=== PATIENT | male | born 1935 | race Caucasian/White ===

== ENCOUNTER → 2018-04-28 14:50 | Outpatient (CLI) | payer MEDICARE, OTHER, SELFPAY | PROVIDERS: Family Provider Internal Medicine; PCP Internal Medicine; Referring Provider Internal Medicine; Visit Provider Internal Medicine | DX: C61 Malignant neoplasm of prostate (principal) | CPT/HCPCS: 36415; 84153 ==

== ENCOUNTER → 2019-04-28 07:35 | Outpatient (CLI) | payer MEDICARE, OTHER, SELFPAY | LOC: LAB.FUTURE 07:39 → LAB 08:48 | PROVIDERS: Family Provider Internal Medicine; PCP Internal Medicine; Referring Provider Urology; Visit Provider Urology | DX: Z12.5 Encounter for screening for malignant neoplasm of prostate (principal) | CPT/HCPCS: 36415; 84153; G0103 ==

== ENCOUNTER 2019-12-09 07:04 | Emergency (ER) | payer MEDICARE, OTHER, SELFPAY ==
[2019-12-09 07:05] VITALS: BP 183/85; PULSE 74; RESP 18; TEMP 36.6; O2SAT 95; BMI 27.1
--- NOTE | 2019-12-09 07:11 | RAD_ITS ---
STUDY: X-RAY CHEST REASON FOR EXAM: Male, 84 years old with right-sided rib pain under the axilla. TECHNIQUE: PA and lateral views of the chest. COMPARISON: Prior comparison studies are not available for review at this time. FINDINGS: The lungs are clear and expanded. There is no demonstrated pleural abnormality. Normal size heart. Normal mediastinum and cheng. There is prominence of the pulmonary hilar arteries without peripheral pulmonary vascular congestion. There is atherosclerotic calcification of the aortic arch with tortuosity. There are diffuse degenerative changes of the visualized thoracic spine. Normal visualized ribs, clavicles, and shoulders. There is no demonstrated abnormality of the visualized soft tissue structures of the upper abdomen. RAD/Chest PA and Lateral IMPRESSION: No radiographic evidence of acute cardiopulmonary disease. Electronically Signed: Keena Avalos MD at 7:45 EDT , Service support ,
[2019-12-09] MEDS: HYDROcodone Bitartrate/Apap 5/325 Tablet PO (07:15)
--- NOTE | 2019-12-09 08:04 | ED.DCSUM_ITS ---
History of Present Illness Chief Complaint: Chest Other Informant: Patient Onset: Yesterday Current Severity: Mild Maximum Severity: Mild Narrative: The patient complains of right upper axillary chest wall pain that occurred after he fell yesterday evening. Indicates he was wearing flip-flop type shoes, he tripped on some stairs believes he jammed his elbow into his chest has had pain since, no head neck chest or abdominal pain no shortness of breath no no other complaints the pain persisted and came in for evaluation He is not on blood thinners he takes her medications for chronic conditions such as prostate and cholesterol Past Medical History - Allergies and Home Meds Allergies/Adverse Reactions: Allergies No Known Allergies Allergy (Verified 12/09/19 07:05) Primary Care Physician: Robert Rosales MD [Primary Care Provider] - Past Medical History: - - Prostate and cholesterol Smoking Status: Never smoker Review of Systems General: Denies: Chills, Fever, Sweats Eyes: Denies: Visual changes - bilaterally, Diplopia ENT: Denies: Rhinorrhea, Sore throat Cardiovascular: Reports: Chest pain. Denies: Palpitations Respiratory: Denies: Dyspnea, Cough, Dyspnea on exertion Gastrointestinal: Denies: Abdominal pain, Nausea, Vomiting, Diarrhea, Melena, Hematochezia Genitourinary: Denies: Dysuria, Hematuria, Frequency Musculoskeletal: Denies: Back pain, Extremity Pain Skin: Denies: Rash, Wounds Neurological: Denies: Headache, Weakness, Numbness Physical Exam Vital Signs/Narrative: Vital Signs Temp Pulse Resp BP Pulse Ox 12/09/19 07:05 98 F 74 18 183/85 H 95 Inital Vital Signs reviewed: Yes General: Well nourished, Well developed, No Acute Distress Head: Normocephalic, Atraumatic, - Eyes: Perrl, EOMI ENT: Moist mucous membranes, No rhinorrhea Neck: Supple, Nontender Cardiovascular: Regular rate, Regular rhythm, No murmurs, - - The discomfort and a small quarter size bruise to the right upper chest at the level of the axilla, there is no crepitus or subcu air here, his breath sounds are normal good excursion the rest of the exam head neck chest all unremarkable he has a small abrasion to the right cheek that he believes is from the carpet he is this area is nontender Respiratory: No distress, CTA bilaterally, Chest nontender Abdomen: Soft, Nontender, Nondistended, Normal bowel sounds Back: Nontender, Normal Inspection Extremities: Nontender, No edema Skin: Normal color, No rash Neurological: Alert, Oriented x3, Cranial nerves II-XII grossly intact, Normal Strength, Normal Sensation Psychological: Normal affect, Normal Mood Diagnostic/Tx/Re-eval - Medical Decision Making Given all the above in his mechanism chest x-rays obtained per radiology shows nothing acute I explained to him the concept of chest wall injury rib injury fracture etc. he understands he is comfortable discharge home, he will take Tylenol for the pain that this is ineffective we will use [place] ice follow-up with his physicians and return for change in symptoms Home stable Final impression right chest injury after fall possible occult rib fracture ED Disposition - Plan for ED Patient: Diagnosis: Rib fracture Prescriptions: Hydrocodone Bitart/Apap 5-325 [[place] 5MG-325MG] 1 tab PO Q6H PRN PRN 3 Days #10 tab PRN Reason: Pain Prescription Printed Referrals: Robert Rosales MD [Primary Care Provider] - Additional Instructions: Ice to the area use Tylenol for pain if Tylenol ineffective can take [place] at night
--- NOTE | 2019-12-09 08:09 | ED.DEP ---
ED Disposition - Plan for ED Patient: Diagnosis: Rib fracture Instructions: ED Contusion Vs Minor Fx Rib Prescriptions: Hydrocodone Bitart/Apap 5-325 [[place] 5MG-325MG] 1 tab PO Q6H PRN PRN 3 Days #10 tab PRN Reason: Pain Prescription Printed Referrals: Robert Rosales MD [Primary Care Provider] - Additional Instructions: Ice to the area use Tylenol for pain if Tylenol ineffective can take [place] at night
[2019-12-09 08:21] VITALS: BP 138/78; PULSE 80; RESP 18
== END 2019-12-09 08:45 | disposition home or self-care (01) ==
LOC: ED 08:04
PROVIDERS: Emergency Provider Emergency Medicine; PCP Internal Medicine
DX: S22.31XA Fracture of one rib, right side, initial encounter for closed fracture (principal); W01.0XXA Fall on same level from slipping, tripping and stumbling without subsequent striking against object, initial encounter; Y93.9 Activity, unspecified; Y92.9 Unspecified place or not applicable
CPT/HCPCS: 71046; 99283

== ENCOUNTER → 2020-03-17 | Outpatient (CLI) | payer MEDICARE, OTHER, SELFPAY | END | disposition home or self-care (01) | LOC: LABSPEC 16:55 | PROVIDERS: PCP Internal Medicine; Referring Provider Nurse Practitioner Adult Health; Visit Provider Nurse Practitioner Adult Health | DX: N39.0 Urinary tract infection, site not specified (principal) | CPT/HCPCS: 87077; 87086; 87088; 87186 ==

== ENCOUNTER → 2020-04-13 10:15 | Outpatient (CLI) | payer MEDICARE, OTHER, SELFPAY | PROVIDERS: PCP Internal Medicine; Referring Provider Urology; Visit Provider Urology | DX: R97.20 Elevated prostate specific antigen [PSA] (principal) | CPT/HCPCS: 36415; 84153 ==

== ENCOUNTER → 2020-04-25 10:07 | Outpatient (CLI) | payer MEDICARE, OTHER, SELFPAY ==
--- NOTE | 2020-04-25 10:09 | NM_ITS ---
CLINICAL: 84-year-old male with history of carcinoma of the prostate and related recent traumatic fall. WHOLE BODY 99m Tc MDP RADIONUCLIDE BONE SCINTIGRAPHY COMPARISON: Previous whole body bone scintigraphy study dated 03/18/2017 FINDINGS: Following the intravenous administration of 27.0 mCi of 99m Tc MDP, whole body bone images reveal: 1. Newly visualized increased radiopharmaceutical concentration is noted in the right anterior second-fifth ribs, linear in presentation defined in the longitudinal plane. 2. Enhanced tracer uptake remains apparent in the acromioclavicular and glenohumeral, sternoclavicular compartments of both shoulders, bilateral knees, left wrist, right and left hands, right midfoot, left forefoot, third-fifth lumbar vertebra. 3. The remaining skeletal structures are scintigraphically unremarkable with normal-appearing renal images and urinary bladder activity identified. NM/Bone Scan Whole Body IMPRESSION: 1. The increase in radiopharmaceutical concentration identified in the right anterior second-fifth ribs is consistent with trauma-fracture. 2. 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 3. Overall compared to the previous whole body bone scintigraphy study dated 03/18/2020, the newly identified increased uptake defined in the right anterior second-fifth ribs is commensurate with trauma-fracture. Otherwise, there is no significant interval change. No current typical scintigraphic evidence of diffuse axial skeletal metastatic disease is observed on the current examination. Electronically Signed: Julio Tineo, at 22:06 EDT Tel , Service support ,
== END ==
PROVIDERS: PCP Internal Medicine; Referring Provider Urology; Visit Provider Urology
DX: C61 Malignant neoplasm of prostate (principal)
CPT/HCPCS: 78306

== ENCOUNTER → 2020-05-05 | Outpatient (CLI) | payer MEDICARE, OTHER, SELFPAY ==
--- NOTE | 2020-05-05 08:00 | PROSBIL_PTH ---
PATIENT: ROB CHONG LOC: [facility] U#:[id number] AGE/SX: 85/M ROOM: RE05/05/[address]: Dr. Alberto Luna MD : 1935 BED: DIS: 05/05/2020 SPEC #: [id number] RECD: 05/05/20 12:35 STATUS: KAYLIN REJaret #: [id number] PROSPER: 05/05/20 08:[address]: Alberto Luna DEPT: SURGICAL PATHOLOGY RECD BY: Shila Alcala ENTERED: 05/05/20 12:36 SP TYPE: PROST BX ODILON DR: Dr. Robert Rosales MD Tissues: A - PROSTATE RIGHT B - PROSTATE RIGHT C - PROSTATE RIGHT D - PROSTATE LEFT E - PROSTATE LEFT F - PROSTATE LEFT Procedures: PROSTATE BX HEADER OPERATION: Prostate biopsy PRE-OP DIAGNOSIS: Elevated PSA TISSUE SUBMITTED: A - Right apex, B - Right mid, C - Right base, D - Left apex, E - Left mid, F - Left base MICROSCOPIC DIAGNOSIS A. Right prostate, apex, core biopsy: Prostatic adenocarcinoma. [place] grade: 5+4=9 Number of cores involved: 1/1 Proportion of tissue involved: ~50% Perineural invasion: Not identified. Greatest tumor length: 0.5 cm Extensive calcification. B. Right prostate, mid, core biopsy: Prostatic adenocarcinoma. [place] grade: 5+4=9 Number of cores involved: 1/1 Proportion of tissue involved: ~50% Perineural invasion: Not identified. Greatest tumor length: 0.4 cm, discontinuous C. Right prostate, base, core biopsy: Prostatic adenocarcinoma. [place] grade: 4+4=8 Number of cores involved: 1/1 Proportion of tissue involved: ~30% Perineural invasion: Present, focal. Greatest tumor length: 0.3 cm D. Left prostate, apex, core biopsy: Prostatic tissue, negative for malignancy. E. Left prostate, mid, core biopsy: Prostatic tissue, negative for malignancy. Focal mild chronic inflammation. F. Left prostate, base, core biopsy: Prostatic tissue, negative for malignancy. Focal mild chronic inflammation and basal cell hyperplasia. SJ:radha 05/06/20 MICROSCOPIC DESCRIPTION Slides are reviewed. GROSS DESCRIPTION A - Received is one container designated prostate, right apex. The specimen consists of one elongated fragment of light reyes-white soft tissue measuring 1.5 cm in length and 0.1 cm in diameter. The specimen is totally submitted in one cassette. B - Received is one container designated prostate, right mid. The specimen consists of one elongated fragment of light reyes-white soft tissue measuring 1 cm in length and 0.1 cm in diameter. The specimen is totally submitted in one cassette. C - Received is one container designated prostate, right base. The specimen consists of one elongated fragment of light reyes-white soft tissue measuring 1.2 cm in length and 0.1 cm in diameter. The specimen is totally submitted in one cassette. D - Received is one container designated prostate, left apex. The specimen consists of one elongated fragment of light reyes-white soft tissue measuring 1.4 cm in length and 0.1 cm in diameter. The specimen is totally submitted in one cassette. E - Received is one container designated prostate, left mid. The specimen consists of one elongated fragment of light reyes-white soft tissue measuring 1.2 cm in length and 0.1 cm in diameter. The specimen is totally submitted in one cassette. F - Received is one container designated prostate, left base. The specimen consists of one elongated fragment of light reyes-white soft tissue measuring 1.5 cm in length and 0.1 cm in diameter. The specimen is totally submitted in one cassette. / SJ:rg 05/05/20 TC:0 CPT: G0146
== END | disposition home or self-care (01) ==
LOC: LABSPEC 12:14
PROVIDERS: PCP Internal Medicine; Visit Provider Urology
DX: C61 Malignant neoplasm of prostate (principal)
CPT/HCPCS: 88305; G0416

== ENCOUNTER → 2020-05-27 13:25 | Outpatient (CLI) | payer MEDICARE, OTHER, SELFPAY ==
--- NOTE | 2020-05-27 13:28 | CT_ITS ---
STUDY: CT ABDOMEN AND PELVIS WITH CONTRAST REASON FOR EXAM: Male, 85 years old. PROSTATE CA IN 2010, TOOK PILLS THEN NOW HAS RAISING PSA. PRIOR BACK SURGERY RADIATION DOSAGE (If Supplied By Facility): CTDIvol = ( 16.40 ) mGy, DLP = ( 807.20 ) mGycm TECHNIQUE: Transaxial images were obtained from the dome of the diaphragm to the symphysis pubis without oral contrast. IV 100mL Isovue-300 was administered. Sagittal and coronal images were reconstructed. Individualized dose optimization techniques were used for this CT. COMPARISON: None. FINDINGS: Minimal degree of increased linear markings at the left lung base suggestive of a possible scarring. The visualized portions of the heart are within normal limits. Scattered cysts in the right lobe of the liver. The largest cyst measures 1.5 cm and is in the dome portion of the right lobe. Normal gallbladder and extrahepatic biliary system. Normal spleen. Normal pancreas. There is a 2.5 cm x 2.6 cm hypodense nodule in the right adrenal gland. This is not a typical adenoma. Hypertrophy of the left adrenal gland. Normal right kidney. Normal left kidney. There is a small hiatal hernia. Normal small intestine. There are multiple colonic diverticula consistent with diverticulosis. The appendix is visualized and appears normal. There is diffuse atherosclerotic calcification of the abdominal aorta, without a demonstrated aneurysm. Normal inferior vena cava. Normal retroperitoneum. Diffuse bladder wall thickening although the bladder is not completely distended. The prostate measures 3.9 cm x 4.5 cm. Inhomogeneous calcifications are seen along its inferior portion. There is a small umbilical hernia containing fat. There are diffuse degenerative changes of the visualized lumbar spine. CT/Abdomen/Pelvis W IV Cont ONLY IMPRESSION: Hepatic cysts. 2.5 cm x 2.6 cm hypodense nodule in the right adrenal gland. Follow-up is recommended. Enlargement of the prostate with thickening of the bladder wall. Electronically Signed: Fernie Mera, at 14:38 EST , Service support ,
[2020-05-27 13:40] LABS: CREATININE FINGERSTICK 1.3 mg/dL (0.70-1.30)
== END ==
PROVIDERS: PCP Internal Medicine; Referring Provider Urology; Visit Provider Urology
DX: C61 Malignant neoplasm of prostate (principal)
CPT/HCPCS: 74177; Q9967

== ENCOUNTER 2020-06-03 05:56 | Day surgery (SDC) | payer MEDICARE, OTHER, SELFPAY ==
[2020-06-03] VITALS (7 sets, daily range): BP systolic 127–148; BP diastolic 68–87; PULSE 54–69; RESP 16; TEMP 36.3–36.9; O2SAT 92–97; BMI 27.7
[2020-06-03] MEDS: Lactated Ringers 1,000 ML 100 ML IV (06:36)
[2020-06-03] MEDS: Cefazolin 2 GM in 0.9% Normal Saline 100 ML IV (07:26)
--- NOTE | 2020-06-03 07:30 | PCM.HP.STD ---
Problem List (1) Prostate cancer Status: Acute History of Present Illness Date of Admission: 06/03/20 Chief Complaint: Prostate cancer The patient is a 85 year old male with prostate cancer high risk disease PSA of 44 - for metastatic disease organ to proceed with treatment for his prostate cancer. Past Medical History Allergies No Known Allergies Allergy (Verified 12/09/19 07:05) Home Medications: Ambulatory Orders Medication Instructions Recorded Aspirin [Aspirin, Baby] 81 mg PO DAILY@0800 12/09/19 Doxazosin Mesylate 2 mg PO QHS 12/09/19 Finasteride 5 mg PO DAILY 12/09/19 Lisinopril 30 mg PO DAILY 12/09/19 Pravastatin [Pravachol] 20 mg PO QHS 12/09/19 Surgical History: no surgical history Smoking Status: Former smoker Review of Systems Constitutional: Denies: Chills, Fever, Weight Change HEENT: Denies: Head Aches, Sinus Congestion, Sinus Drainage Cardiovascular: Denies: Chest Pain, Palpitations Respiratory: Denies: Cough, Shortness of breath at rest, Sputum production Gastrointestinal: Denies: Abdominal Pain, Nausea, Vomiting Genitourinary: Denies: Dysuria Musculoskeletal: Denies: Joint Pain, Joint Tenderness Skin: Denies: Rash, Wounds Neurological: Denies: Numbness, Tingling, Focal weakness Psychiatric: Denies: Anxiety, Depression, Homicidal Ideations, Suicidal Ideations Hematologic/ Lymphatic: Denies: Easy Bruising, Easy Bleeding VTE Information - Inpt Only VTE Present on Admission: No - Physical Exam Vitals/I&O's: Vital Signs Temp Pulse Resp BP Pulse Ox 98.4 F 69 16 146/87 H 97 06/03/20 06:25 06/03/20 06:25 06/03/20 06:25 06/03/20 06:25 06/03/20 06:25 Oxygen Delivery Method Room Air Weight: 79.2 kg Body Mass Index (BMI) 27.7 General: Alert, Oriented x3, Cooperative HEENT: Atraumatic, PERRLA, EOMI, Normocephalic Neck: Supple, No JVD, Negative Carotid Bruits Lungs: Clear to auscultation, Normal air movement Cardiovascular: Regular rate, No murmurs Abdomen: Bowel Sounds Present, Soft, Non Tender Extremities: No edema, Capillary Refill Less than 3 Seconds Skin: No rashes, No breakdown Musculoskeletal: No Tenderness to Palpation of Joints or Extremities Neurological: Cranial nerves II-XII grossly intact Psych/Mental Status: Normal Affect, Appropriate Microbiology Past 72 Hours 05/31/20 13:58 Interface Orders SARS-CoV-2 Antigen (Rapid) - Final Current Medications Cefazolin Sodium 2 gm/ Sodium (Chloride) 110 mls @ 150 mls/hr IV PREOP ONE Stop: 06/03/20 08:13 Lactated Ringer's () 1,000 mls @ 100 mls/hr IV .Q10H OKSANA Last Admin: 06/03/20 06:36 Dose: 100 mls/hr Documented by: Assessment/Plan All Active Problems Prostate cancer (Acute) Plan of to place spacer gel matrix and also gold markers for prostate cancer treatment for radiation.
--- NOTE | 2020-06-03 07:33 | DCINST_ITS ---
Discharge Diet: No Restrictions Discharge Activity: Return to Normal Activity, May Not Drive - for 2 days. Additional Activity Instructions:: Please be aware that pain medications may cause nausea. You should typically eat light foods as you take your pain medication. Pain medication may cause constipation, if this is a problem for you, please discuss with your doctor. Suture Line Care: Avoid Pulling/Pushing, Avoid Pinching/Bending Allergies/Adverse Reactions: Allergies No Known Allergies Allergy (Verified 12/09/19 07:05) Medications to take at Discharge Aspirin [Aspirin, Baby] 81 mg PO DAILY@0800 12/09/19 Doxazosin Mesylate 2 mg PO QHS 12/09/19 Finasteride 5 mg PO DAILY 12/09/19 Lisinopril 30 mg PO DAILY 12/09/19 Pravastatin [Pravachol] 20 mg PO QHS 12/09/19 Primary Care Physician: Robert Rosales MD [Primary Care Provider] - Test Results: Test results from this visit will be discussed in further detail at your follow- up appointment, if applicable. Please Follow Up With: Alberto Luna MD When: in 2 weeks, please call to make an appointment- for hormone shot
--- NOTE | 2020-06-03 07:44 | OP.PCM_ITS ---
Problem List (1) Prostate cancer Status: Acute Report of Operation Date of Procedure: 06/03/20 Pre-Operative Diagnosis: Prostate cancer Post-Operative Diagnosis: Same Surgery/Procedure Performed:: Transrectal ultrasound-guided placement of gold fiducial markers, transrectal ultrasound-guided placement of spacer organ at risk gel matrix Description of Surgical Findings:: 85-year-old male who is elected to undergo treatment for prostate cancer with radiation is negative for metastatic disease he does have a high PSA of 44 and also he has high-grade prostate cancer. Still in fairly good health for his age so he is elected undergo radiation treatments. The risk that this could become metastatic without treatment but the next 2 or 3 years is fairly high and therefore the patient wants treatment. Patient was taken back to the operating room after smooth induction of general anesthesia he was placed in dorsolithotomy position the penis perineum and rectum area were prepped and draped in usual fashion I then placed a biplanar ultrasound probe into the rectum. Performed ultrasonography of the prostate. Identified the prostate landmarks. There was the base the prostate mid prostate apex the prostate seminal vesicles the space of Denonvilliers' fascia in the rectum. I then guided the first gold fiducial marker into the left base I then guided the second fiducial marker into the right base and then I guided the third fiducial marker into the left apex of the prostate this was all done with ultrasound guidance and confirmed to be in the prostate. Once all 3 markers we re placed then I prepared the spacer organ at risk gel matrix and the table per the ceramic plater's instructions. We then used the bevel needle down guided the needle in the midline below the prostate to get right into the space of Denonvilliers' fascia. Injected injectable saline into the area of the the rectum and the prostate nicely I then pulled the needle further in and then pulled it back to confirm location free-floating in the space of Denonvilliers' fascia and then I injected the gel matrix 5 cc of it over course of 10 seconds slowly to cause a nice separation between the rectum and the prostate. There is no extravasation of the gel and the gel stay nicely in place and then I withdrew the needle patient was was cleaned taken out of stirrups and taken the PACU in good condition he is going to then proceed to my office to have hormone therapy started and then start with radiation treatments. Type of Anesthesia:: General Drains: none - Admit VTE Documentation VTE Present on Admission: No VTE Mechan Device Prophylaxis: SCD's
== END 2020-06-03 09:16 | disposition home or self-care (01) ==
LOC: SDC 05:56 → AC 05:57
PROVIDERS: PCP Internal Medicine; Referring Provider Urology; Visit Provider Urology
PROC: (CPT 55874; principal; 2020-06-03 07:15)
DX: C61 Malignant neoplasm of prostate (principal); Z20.828 Contact with and (suspected) exposure to other viral communicable diseases; I10 Essential (primary) hypertension; G47.30 Sleep apnea, unspecified; E78.00 Pure hypercholesterolemia, unspecified; Z79.82 Long term (current) use of aspirin; Z79.899 Other long term (current) drug therapy; Z87.891 Personal history of nicotine dependence
CPT/HCPCS: 55874; 55876; 87426; C9803; J7120; J2405; J3490

== ENCOUNTER → 2020-06-22 11:10 | Outpatient (CLI) | payer MEDICARE, OTHER, SELFPAY ==
[2020-06-03 06:25] VITALS: BMI 27.7
[2020-06-22 12:34] LABS: Absolute Lymphocyte Count 1.31 X10^3/uL (0.83-4.51); Absolute Neutrophil Count 4.1 X10^3/uL (2.0-7.7); Basophil# 0.05 X10^3/uL; Basophil% 0.8 % (0-1); Eosinophil# 0.03 X10^3/uL; Eosinophils% 0.5 % (0-5); Hematocrit 44.5 % (40-54); Hemoglobin 14.6 g/dL (13.0-16.5); Lymphocyte # 1.31 X10^3/ul (4.0); Lymphocyte % 21.9 % (19-41); Mean Corp Hgb Conc 32.8 g/dL (32-36); Mean Corpuscular Hgb 31.5 pg (27.0-32.0); Mean Corpuscular Volume 95.9 fL (80-94); Mean Platelet Vol. 9.2 fl (6.2-12.0); Monocyte# 0.44 X10^3/uL; Monocyte% 7.4 % (0-10); NRBC Flagged by Analyzer 0 % (0-5); Neutrophil # 4.13 X10^3/uL (2.7-7.7); Neutrophil % 69.1 % (47-70); Platelet Count 299 K/mm3 (150-450); RBC Distribution Width CV 12.9 % (11.6-14.6); RBC Distribution Width SD 45.6 fl (35.1-43.9); Red Blood Count 4.64 M/mm3 (4.6-6.2)
[2020-06-22 12:50] LABS: EST Glomerular Filtration Rate 75 mL/min (>60); Est Glom Filt Rate - Afr Amer 91 mL/min (>60)
== END ==
PROVIDERS: PCP Internal Medicine; Referring Provider Radiology Radiation Oncology; Visit Provider Radiology Radiation Oncology
DX: Z01.818 Encounter for other preprocedural examination (principal); C61 Malignant neoplasm of prostate
CPT/HCPCS: 36415; 82565; 84153; 85025

== ENCOUNTER → 2020-06-23 13:16 | Outpatient (CLI) | payer MEDICARE, OTHER, SELFPAY ==
[2020-06-03 06:25] VITALS: BMI 27.7
--- NOTE | 2020-06-23 13:18 | CT_ITS ---
STUDY: CT PELVIS WITH CONTRAST REASON FOR EXAM: Male, 85 years old. [address]ATE PL[address]ING CT, NEW DX OF PROSTATE CA RADIATION DOSAGE (If Supplied By Facility): CTDIvol = ( 24.62 ) mGy, DLP = ( 1386.74 ) mGycm TECHNIQUE: Transaxial imaging of the pelvis was performed without oral contrast. Oral and amp; IV READII-CAT and amp; 100ML ISOVUE 300 was administered intravenously. Individualized dose optimization techniques were used for this CT. COMPARISON: Comparison is made with prior examination dated 05/27/2020. FINDINGS: The urinary bladder is distended. The prostate measures 3.8 cm x 4.8 cm. Metallic radiation seeds are seen within the prostate. Dense central prostatic calcifications are seen. The visualized urethra is unremarkable. Normal visualized small intestine. There are multiple colonic diverticula of the sigmoid colon consistent with chronic diverticulosis. There is no pelvic fluid. There is no pelvic lymphadenopathy or mass lesion. There is diffuse atherosclerotic calcification of the pelvic arteries. Small umbilical hernia containing fat. There are diffuse degenerative changes of the visualized lumbar spine. CT/CT Pelvis W/CONT Therapy IMPRESSION: Prostatic enlargement with indentation of the bladder base. Metallic radiation seeds are seen within the prostate as well as dense central calcifications. Electronically Signed: Fernie Mera, at 15:04 EST , Service support ,
== END ==
PROVIDERS: PCP Internal Medicine; Referring Provider Radiology Radiation Oncology; Visit Provider Radiology Radiation Oncology
DX: C61 Malignant neoplasm of prostate (principal)
CPT/HCPCS: 51600; 72193; Q9967

== ENCOUNTER → 2020-07-26 10:15 | Outpatient (CLI) | payer MEDICARE, OTHER, SELFPAY ==
[2020-06-03 06:25] VITALS: BMI 27.7
[2020-07-26 12:53] LABS: Absolute Lymphocyte Count 0.56 X10^3/uL (0.83-4.51); Absolute Neutrophil Count 3.2 X10^3/uL (2.0-7.7); Basophil# 0.02 X10^3/uL; Basophil% 0.5 % (0-1); Eosinophil# 0.07 X10^3/uL; Eosinophils% 1.7 % (0-5); Hematocrit 38.7 % (40-54); Hemoglobin 13.1 g/dL (13.0-16.5); Lymphocyte # 0.56 X10^3/ul (4.0); Lymphocyte % 13.5 % (19-41); Mean Corp Hgb Conc 33.9 g/dL (32-36); Mean Corpuscular Hgb 31.4 pg (27.0-32.0); Mean Corpuscular Volume 92.8 fL (80-94); Mean Platelet Vol. 8.9 fl (6.2-12.0); Monocyte# 0.34 X10^3/uL; Monocyte% 8.2 % (0-10); NRBC Flagged by Analyzer 0 % (0-5); Neutrophil # 3.15 X10^3/uL (2.7-7.7); Neutrophil % 75.6 % (47-70); POSITIVE DIFFERENTIAL YES; Platelet Count 217 K/mm3 (150-450); RBC Distribution Width CV 12.4 % (11.6-14.6); RBC Distribution Width SD 42.7 fl (35.1-43.9); Red Blood Count 4.17 M/mm3 (4.6-6.2); White Blood Count 4.2 K/mm3 (4.4-11.0)
[2020-07-26 13:07] LABS: Differential Indicated SCAN CRITERIA MET
[2020-07-26 13:26] LABS: Differential Comment SCANNED
[2020-07-27 14:31] LABS: Pathologist Review Reviewed
== END ==
PROVIDERS: PCP Internal Medicine; Referring Provider Radiology Radiation Oncology; Visit Provider Radiology Radiation Oncology
DX: C61 Malignant neoplasm of prostate (principal)
CPT/HCPCS: 36415; 85025

== ENCOUNTER → 2020-08-08 15:02 | Outpatient (CLI) | payer MEDICARE, OTHER, SELFPAY ==
[2020-06-03 06:25] VITALS: BMI 27.7
[2020-08-08 17:42] LABS: Absolute Lymphocyte Count 0.43 X10^3/uL (0.83-4.51); Absolute Neutrophil Count 3.2 X10^3/uL (2.0-7.7); Basophil# 0.02 X10^3/uL; Basophil% 0.5 % (0-1); Eosinophil# 0.09 X10^3/uL; Eosinophils% 2.2 % (0-5); Hematocrit 37.5 % (40-54); Hemoglobin 12.2 g/dL (13.0-16.5); Lymphocyte # 0.43 X10^3/ul (4.0); Lymphocyte % 10.4 % (19-41); Mean Corp Hgb Conc 32.5 g/dL (32-36); Mean Corpuscular Hgb 30.7 pg (27.0-32.0); Mean Corpuscular Volume 94.2 fL (80-94); Monocyte# 0.44 X10^3/uL; Monocyte% 10.6 % (0-10); NRBC Flagged by Analyzer 0 % (0-5); Neutrophil # 3.15 X10^3/uL (2.7-7.7); Neutrophil % 75.8 % (47-70); POSITIVE DIFFERENTIAL YES; Platelet Count 247 K/mm3 (150-450); RBC Distribution Width CV 12.8 % (11.6-14.6); RBC Distribution Width SD 43.8 fl (35.1-43.9); Red Blood Count 3.98 M/mm3 (4.6-6.2); White Blood Count 4.2 K/mm3 (4.4-11.0)
[2020-08-08 17:43] LABS: Differential Indicated SCAN CRITERIA MET
== END ==
PROVIDERS: PCP Internal Medicine; Visit Provider Radiology Radiation Oncology
DX: C61 Malignant neoplasm of prostate (principal)
CPT/HCPCS: 36415; 85025

== ENCOUNTER 2020-08-31 09:35 | Outpatient (RCR) | payer MEDICARE, OTHER, SELFPAY ==
[2020-06-03 06:25] VITALS: BMI 27.7
== END 2020-08-31 23:59 ==
LOC: IMMUN 09:35
PROVIDERS: PCP Internal Medicine; Referring Provider Family Medicine; Visit Provider Family Medicine
DX: Z23 Encounter for immunization (principal)
CPT/HCPCS: 0011A; 0012A

== ENCOUNTER → 2020-09-12 08:39 | Outpatient (CLI) | payer MEDICARE, OTHER, SELFPAY ==
[2020-06-03 06:25] VITALS: BMI 27.7
[2020-09-12 09:48] LABS: PSA,Total- Diagnostic 0.02 ng/mL (0.0-4.0)
== END ==
PROVIDERS: PCP Internal Medicine; Referring Provider Urology; Visit Provider Urology
DX: R97.20 Elevated prostate specific antigen [PSA] (principal)
CPT/HCPCS: 36415; 84153

== ENCOUNTER → 2020-12-19 10:27 | Outpatient (CLI) | payer MEDICARE, OTHER, SELFPAY ==
[2020-06-03 06:25] VITALS: BMI 27.7
[2020-12-19 11:16] LABS: PSA,Total- Diagnostic 0.03 ng/mL (0.0-4.0)
== END ==
PROVIDERS: PCP Internal Medicine; Referring Provider Urology; Visit Provider Urology
DX: C61 Malignant neoplasm of prostate (principal)
CPT/HCPCS: 36415; 84153

== ENCOUNTER → 2021-03-22 09:44 | Outpatient (CLI) | payer MEDICARE, OTHER, SELFPAY ==
[2021-03-22 11:14] LABS: PSA,Total- Diagnostic 0.02 ng/mL (0.0-4.0)
== END ==
PROVIDERS: PCP Internal Medicine; Visit Provider Urology
DX: C61 Malignant neoplasm of prostate (principal)
CPT/HCPCS: 36415; 84153

== ENCOUNTER → 2021-06-28 10:07 | Outpatient (CLI) | payer MEDICARE, OTHER, SELFPAY ==
[2021-06-28 11:36] LABS: PSA,Total- Diagnostic 0.02 ng/mL (0.0-4.0)
== END ==
PROVIDERS: PCP Internal Medicine; Referring Provider Urology; Visit Provider Urology
DX: C61 Malignant neoplasm of prostate (principal)
CPT/HCPCS: 36415; 84153

== ENCOUNTER 2021-10-10 10:53 | Outpatient (CLI) | payer MEDICARE, OTHER, SELFPAY ==
[2021-10-10 11:48] LABS: PSA,Total- Diagnostic < 0.01 ng/mL (0.0-4.0)
== END 2021-10-10 23:59 | disposition home or self-care (01) ==
LOC: LAB 10:55
PROVIDERS: PCP Internal Medicine; Visit Provider Urology
DX: Z85.46 Personal history of malignant neoplasm of prostate (principal)
CPT/HCPCS: 36415; 84153

== ENCOUNTER → 2022-04-10 | Outpatient (CLI) | payer MEDICARE, OTHER, SELFPAY ==
[2022-04-10 12:52] LABS: PSA,Total- Diagnostic < 0.01 ng/mL (0.0-4.0)
== END | disposition home or self-care (01) ==
LOC: LAB 10:43
PROVIDERS: PCP Internal Medicine; Visit Provider Urology
DX: C61 Malignant neoplasm of prostate (principal)
CPT/HCPCS: 36415; 84153

== ENCOUNTER → 2022-10-17 | Outpatient (CLI) | payer MEDICARE, OTHER, SELFPAY ==
[2022-10-17 11:18] LABS: PSA,Total- Diagnostic 0.01 ng/mL (0.0-4.0)
== END | disposition home or self-care (01) ==
PROVIDERS: PCP Internal Medicine; Referring Provider Urology; Visit Provider Urology
DX: C61 Malignant neoplasm of prostate (principal)
CPT/HCPCS: 36415; 84153

== ENCOUNTER → 2023-01-31 | Outpatient (CLI) | payer MEDICARE, OTHER, SELFPAY ==
--- NOTE | 2023-01-31 12:45 | ECHOCS_ITS ---
Reason For Study: Palpitations Procedure This was a 2D Doppler, Color Flow transthoracic echocardiogram. The study was technically difficult. Contrast injection was performed. Exam performed in department. Left Ventricle Normal LV size. Left ventricular systolic function is normal. The estimated ejection fraction is 60 %. Stage 1 diastolic dysfunction. No regional wall motion abnormalities noted. Right Ventricle Normal RV size. Normal systolic function. Atria Normal left atrium. Normal right atrium. Mitral Valve Normal mitral valve. Tricuspid Valve Normal tricuspid valve. Mild (1+) tricuspid valve insufficiency. Pulmonary artery systolic pressure is 30 mmHg. Aortic Valve Trisinus/trileaflet aortic valve. Pulmonic Valve Normal pulmonic valve. Mild (1+) pulmonic valve insufficiency. Great Vessels Normal aortic root. The pulmonary artery is normal size. Normal inferior vena cava. Pericardium/Pleural No pericardial effusion. Medication 20 gauge I.V. with prn adaptor inserted into right arm. Diluted definity 3ml given slow IV push to enhance endocardial definition. MMode/2D Measurements & Calculations LVIDd: 5.2 cm IVSd: 0.93 cm Ao root diam: 3.3 cm LVIDs: 4.3 cm LVPWd: 1.1 cm LA dimension: 4.3 cm FS: 18.0 % LAV(MOD-bp): 51.8 ml LA A4 area: 18.8 cm2 RA A4 area: 19.5 cm2 LAV(MOD-bp) Indexed: 27.5 ml/m2 LAV(MOD-sp2): 48.0 ml LAV(MOD-sp4): 50.1 ml Time Measurements MV dec time: 0.24 sec Doppler Measurements & Calculations MV E max federico: 44.2 cm/sec Lat Peak E' Federico: 4.7 cm/sec Med Peak E' Federico: 3.4 cm/sec MV A max federico: 98.7 cm/sec E/E' lat: 9.5 E/E' med: 13.2 MV E/A: 0.45 MV V2 max: 108.7 cm/sec MV P1/2t max federico: 42.9 cm/sec Ao V2 max: 95.8 cm/sec MV max P.7 mmHg MV P1/2t: 63.9 msec Ao max P.7 mmHg MV V2 mean: 41.1 cm/sec MV dec slope: 196.4 cm/sec2 Ao V2 mean: 67.4 cm/sec MV mean P.95 mmHg Ao mean P.1 mmHg MV V2 VTI: 20.0 cm MVA(P1/2t): 3.4 cm2 Ao V2 VTI: 20.0 cm AV (velocity ratio): 0.98 LV V1 max: 98.3 cm/sec PI dec slope: 254.3 cm/sec2 TR max federico: 252.2 cm/sec LV V1 max P.9 mmHg TR max P.4 mmHg LV V1 mean P.1 mmHg LV V1 mean: 68.7 cm/sec LV V1 VTI: 19.6 cm ECHO/Echo Complete W/ Contrast Interpretation Summary Normal LV size. Left ventricular systolic function is normal. The estimated ejection fraction is 60 %. Stage 1 diastolic dysfunction. Contrast injection was performed. Ordering Physician: Donnell Dorsey Referring Physician: Donnell Dorsey Performed By: Walker Leigh, GIL
== END | disposition home or self-care (01) ==
LOC: PSN 12:44
PROVIDERS: PCP Internal Medicine; Referring Provider Internal Medicine Cardiovascular Disease; Visit Provider Internal Medicine Cardiovascular Disease
DX: R60.0 Localized edema (principal); R00.2 Palpitations
CPT/HCPCS: 93225; 93226; 93306; Q9957; A4216; C8929

== ENCOUNTER → 2023-04-15 | Outpatient (CLI) | payer MEDICARE, OTHER, SELFPAY ==
[2023-04-15 12:12] LABS: PSA,Total- Diagnostic 0.01 ng/mL (0.0-4.0)
== END | disposition home or self-care (01) ==
LOC: LAB 09:58
PROVIDERS: PCP Internal Medicine; Referring Provider Registered Nurse; Visit Provider Registered Nurse
DX: C61 Malignant neoplasm of prostate (principal)
CPT/HCPCS: 36415; 84153